=== PATIENT | male | born 1970 | race Caucasian/White ===

== ENCOUNTER 2019-12-09 07:28 | Emergency (ER) | payer OTHER, SELFPAY ==
--- NOTE | ~2019-12-09 | XR_ITS ---
XR foot RT min 3V DATE: 12/09/2019 08:57 INDICATION: Chronic wound to the wall of the foot. TECHNIQUE: 4 views COMPARISON: None FINDINGS: No fracture or dislocation, periosteal reaction or bone destruction. No radiopaque foreign body. IMPRESSION: No significant abnormality Reviewed, dictated and finalized at [facility]. IMPRESSION: No significant abnormality
--- NOTE | ~2019-12-09 | CT_ITS ---
EXAMINATION: CT brain wo con DATE: 12/09/2019 08:48 INDICATION: Headache. History of brain mass. TECHNIQUE: Computed tomography (CT) of the head was performed without intravenous contrast. The mA wa s adjusted according to patient size. Iterative reconstruction technique was employed. Exam dose: 68 1.00 mGy-cm total exam DLP. COMPARISON: None FINDINGS: There is an approximately 2.4 cm calcified meningioma along the floor of the anterior crani al fossa was centered slightly left of midline. There is no surrounding edema. Cavum septum pellucidum and cavum vergae, anatomic variants. No other intracranial mass lesion is detected. No intracranial hemorrhage. No midline shift or mass e ffect. No subdural or epidural hematoma. No fracture or bone destruction of the cranial vault. Included paranasal sinuses and mastoid air cells are unremarkable. IMPRESSION: 2.4 cm calcified meningioma at the floor of the anterior cranial fossa Cavum septum embolism, caval vergae, anatomic variants. Reviewed, dictated and finalized at [facility]. Reviewed, dictated and finalized at location [facility]. IMPRESSION: 2.4 cm calcified meningioma at the floor of the anterior cranial f gretchen Cavum septum embolism, caval vergae, anatomic variants.
[2019-12-09 07:30] VITALS: BP 147/91; PULSE 71; RESP 16; TEMP 36.4; O2SAT 100
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
[2019-12-09 08:07] LABS: Basophils Percent Auto 0.3 % (0.2-1.2); Eosinophils Absolute Auto 0.2 K/mm3 (0-0.3); Eosinophils Percent Auto 2.3 % (0-4.4); Hematocrit 38.3 % (42.0-52.0); Hemoglobin 12.4 g/dL (14.0-18.0); Immature Granulocyte Absolute 0.03 K/mm3 (0.00-0.031); Immature Granulocyte Percent A 0.3 % (0-0.5); Lymphocytes Absolute Auto 2.12 K/mm3 (0.9-3.2); Lymphocytes Percent Auto 24.2 % (18.3-44.2); Mean Corpuscular HGB Conc 32.4 g/dl (32-36); Mean Corpuscular Volume 86.5 fl (80-100); Mean Platelet Volume 10.8 fl (7.4-10.4); Monocytes Absolute Auto 0.6 K/mm3 (0.1-0.6); Monocytes Percent Auto 6.7 % (2.6-8.5); Neutrophils Absolute Auto 5.8 K/mm3 (1.3-6.7); Neutrophils Percent Auto 66.2 % (45.5-73.1); Platelet Count Result 264 k/mm3 (150-375); Red Blood Count 4.43 M/mm3 (4.6-6.20); Red Cell Distribution Width 15.2 % (11.5-14.5); White Blood Count 8.8 K/mm3 (4.5-10.0)
[2019-12-09] MEDS: METOCLOPRAMIDE HCL INJ 10 MG/2 ML VIAL IV PUSH (08:07)
[2019-12-09] MEDS: SODIUM CHLORIDE 0.9% IV 1,000 ML 999 ML IV CONT (08:07)
[2019-12-09 08:18] LABS: Alanine Aminotransferase 21 U/L (4-50); Alkaline Phosphatase 68 U/L (38-126); Aspartate Amino Transferase 29 U/L (17-59); Bilirubin,Total 0.4 mg/dL (0.2-1.3); Blood Urea Nitrogen 8 mg/dL (9-20); Calcium 8.5 mg/dL (8.4-10.2); Carbon Dioxide 23 mmol/L (22-30); Chloride 108 mmol/L (98-107); Estimated CRCL calculation 149 ml/min; Estimated Glomerular Filt Rate > 60; Glucose 88 mg/dL (75-110); Potassium 3.6 mmol/L (3.4-5.0); Sodium 138 mmol/L (137-145)
[2019-12-09 08:31] LABS: Ethanol < 10 mg/dL (<10)
[2019-12-09 09:53] VITALS: BP 129/69; PULSE 66; RESP 16; O2SAT 100
[2019-12-09 11:46] VITALS: BP 144/80; PULSE 76; RESP 16; O2SAT 98
--- NOTE | 2019-12-09 12:06 | PC.NURSE ---
Spoke with ED Care Coordination, bus pass token not available; I was given information about [facility] [employer] which may be able to assist pt. Pt. will need own transportation to [facility] and needs to present ID. Pt. given this information and a google map with written directions to [facility]. Pt. asked why we could give him thousands dollars of care but you cannot give me a one dollar bus token . Pt. informed we do not provide transportation and am providing information about a resource which is available to him.
== END 2019-12-09 12:00 | disposition home or self-care (01) ==
PROVIDERS: Emergency Provider Emergency Medicine
DX: L98.8 Other specified disorders of the skin and subcutaneous tissue (principal); F31.9 Bipolar disorder, unspecified
CPT/HCPCS: 36415; 70450; 73630; 80053; 80307; 85025; 96361; 96374; 99284; J2765; J7030